=== PATIENT | female | born 1955 | race Caucasian/White ===

== ENCOUNTER 2016-06-17 11:57 | Emergency (ER) | payer OTHER ==
[~2016-06-17] VITALS: Ht 162.6 cm; Wt 68.5 kg
[~2016-06-17 11:57] MED LIST: DENIES
[2016-06-17 12:09] VITALS: Ht 162.6 cm; Wt 68.5 kg
--- NOTE | 2016-06-17 12:20 | ERA ---
ER Documentation Chief Complaint Date/Time DATE: 06/17/16 TIME: 12:19 Chief Complaint ANXIETY HPI The patient is a 61-year-old female, presenting to the ER because of acute anxiety after she took Diamox for her chronic dizziness. She has history of anxiety. She was evaluated by ENT specialist and neurologist for her chronic dizziness. She had extensive study that included CT scan and MRI of the brain. She denies syncope, near syncope, neck pain, chest pain, dyspnea, abdominal pain, vomiting, dysuria, diarrhea. She does not smoke, drink Past medical history: Anxiety, hypertension Past surgical history: Breast implant, abdominoplasty ROS All systems reviewed and are negative except as per history of present illness. Medications Home Meds Active Scripts Hydroxyzine Hcl* (Atarax*) 25 Mg Tab, 25 MG PO Q6H Y for ITCHING, #20 TAB Prov:JOSEPHINE WERNER MD 06/17/16 Reported Medications Losartan Potassium* (Losartan Potassium*) 25 Mg Tablet, 25 MG PO DAILY, TAB 06/17/16 Discontinued Reported Medications [Denies] No Conflict Check 06/19/10 Allergies Allergies: Coded Allergies: Penicillins (Verified Allergy, Mild, 06/17/16) codeine (Verified Allergy, Mild, 06/17/16) acetazolamide (Verified Allergy, Unknown, ITCH, 06/17/16) PMhx/Soc History of Surgery: Yes (TUMMY TUCK, BREAST IMPLANTS) Anesthesia Reaction: No Hx Neurological Disorder: No Hx Respiratory Disorders: No Hx Cardiac Disorders: No Hx Psychiatric Problems: No Hx Miscellaneous Medical Probl: No Hx Alcohol Use: Yes (OCCASIONAL) Hx Substance Use: No Hx Tobacco Use: Yes Smoking Status: Former smoker Physical Exam Vitals Vital Signs Date Time Temp Pulse Resp B/P Pulse Ox O2 Delivery O2 Flow Rate FiO2 06/17/16 12:09 98.5 80 19 171/76 100 Physical Exam Const: No acute distress. Anxious Head: Atraumatic. Eyes: Normal Conjunctiva. ENT: Normal External Ears, Nose and Mouth. Neck: Full range of motion. No meningismus. Resp: Clear to auscultation bilaterally. Cardio: Regular rate and rhythm, no murmurs. Abd: Soft, non distended, normal bowel sounds, non tender. Skin: No petechiae or rashes. Back: No midline or flank tenderness. Ext: No cyanosis, or edema. Neur: Awake and alert. No focal deficit Psych: Normal Mood and Affect. Procedures/MDM MEDICAL MAKING DECISION: The patient is a 61-year-old female, presenting with acute anxiety attacks. The differential diagnoses considered include but are not limited to central causes such as cerebellar infarct, cerebellar hemorrhage , cerebellar tumor, acoustic neuroma, peripheral causes such as benign positional vertigo, labyrinthitis, medication, Meniere's disease. Departure Diagnosis: Primary Impression: Anxiety Condition: Good Comments She was discharged with Atarax I discussed the findings with the patient. I advised the patient to follow-up with the primary physician in about 1-2 days, sooner if needed and return if any concern. JOSEPHINE WERNER MD Jun 17, 2016 12:19
[2016-06-17] MEDS ORDERED: HYDR-842 PO (12:40)
[2016-06-17] MEDS ORDERED: LOSA25TA5 PO (12:49)
== END 2016-06-17 13:17 | disposition home or self-care (01) ==
LOC: E/R 11:57
DX: F41.9 Anxiety disorder, unspecified (principal); I10 Essential (primary) hypertension; R40.2142 Coma scale, eyes open, spontaneous, at arrival to emergency department; R40.2362 Coma scale, best motor response, obeys commands, at arrival to emergency department; R40.2252 Coma scale, best verbal response, oriented, at arrival to emergency department; Z87.891 Personal history of nicotine dependence
CPT/HCPCS: 99283